=== PATIENT | female | born 2000 | race Caucasian/White ===

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

== ENCOUNTER 2019-04-11 14:24 | Emergency (ER) | payer BC ==
--- OUTSIDE RECORDS SUMMARY | 2019-04-11 15:21 | XMS REPORT | Continuity of Care Document ---
:2000 External Reference #:[id number] Author Name CHAU Torres Address [address] [place] [address] Care Team Providers Name Role Phone Donald Abreu MD - Family Medicine Care Team Information Planning Engineer Problems Active Problems Provider Date Attention deficit hyperactivity disorder, Donald Abreu M.D. Onset: 2017 combined type Manic bipolar I disorder Donald Abreu M.D. Onset: 04/04/2018 Social History Type Date Description Comments Sex Unknown Cigarette Use Several cigarettes per day Tobacco Use Start: Unknown Patient is a current smoker, smokes every day Smoking Status Reviewed: 03/11/19 Patient is a current smoker, smokes every day Allergies, Adverse Reactions, Alerts Description No Known Drug Allergies Medications Active Medications SIG Qnty Indications Ordering Date Provider Guaifenesin ER take 1 tablet every 30tabs J20.9 Donald Abreu, 2018 1200mg 12 hours. M.D. Tablets ER 12HR Breo Ellipta one inhalation 1units J20.9 Donald Abreu, 03/11/2019 daily M.D. 100-25mcg/Inh Aerosol Guanfacine HCL ER 1 by mouth every 30tabs Soito T. 3mg morning MD Guadalupe Tablets ER 24HR Lamotrigine take 1 tablet by Unknown 150mg mouth twice a day Tablets Rexulti 1 by mouth every 30tabs Osito T. 3mg Tablets day MD Guadalupe Prazosin HCL 1 by mouth every at 30caps Osito T. 2mg bedtime MD Guadalupe Capsules Folic Acid 1 by mouth every Unknown 1mg day Tablets Immunizations CPT Code Status Date Vaccine Lot # [id number] Given 02/25/2017 Influenza vac quadrivalent preservative free 6 months and up U-Menin Given 02/25/2016 Meningococcal,Unspecified 58729 Given 02/25/2016 Influenza vac quadrivalent preservative free 6 months and up 26678 Given 02/25/2016 Hep A Ped 2-Dose Immunization 16439 Given 02/09/2015 Influenza vac quadrivalent preservative free 6 months and up 56163 Given 02/09/2015 Gardasil vacine typs 6,11,16,18 3 dose schedule 57113 Given 02/09/2015 Hep A Ped 2-Dose Immunization 82791 Given 01/30/2014 Influenza vac quadrivalent preservative free 6 months and up 93377 Given 01/30/2014 Gardasil vacine typs 6,11,16,18 3 dose schedule U-FluNa Given 01/10/2013 Influenza,Nasal,Unspecified 23835 Given 01/10/2013 Gardasil vacine typs 6,11,16,18 3 dose schedule U-FluNa Given 12/26/2011 Influenza,Nasal,Unspecified U-Menin Given 12/26/2011 Meningococcal,Unspecified U-FluNa Given 12/27/2010 Influenza,Nasal,Unspecified 54438 Given 10/06/2010 Tdap Tetanus, W Pertussis U-FluNa Given 12/24/2009 Influenza,Nasal,Unspecified 92412 Given 04/18/2009 H1N1 Immunization Intramuscular/Intranasal W Counseling U-FluNa Given 03/11/2009 Influenza,Nasal,Unspecified U-FluNa Given 01/26/2008 Influenza,Nasal,Unspecified 85641 Given 09/07/2007 Varicella (Chicken Pox) Immunization U-FluNa Given 03/21/2007 Influenza,Nasal,Unspecified U-FluNa Given 09/18/2006 Influenza,Nasal,Unspecified U-FluNa Given 04/19/2006 Influenza,Nasal,Unspecified 46989 Given 02/26/2005 Influenza vac quadrivalent preservative free 6 months and up U-Polio Given 09/21/2004 Polio,Unspecified 04219 Given 09/21/2004 MMR Virus Immunization 51132 Given 09/21/2004 DTaP Immunization 11865 Given 05/09/2003 Influenza vac quadrivalent preservative free 6 months and up 71885 Given 03/01/2003 Influenza vac quadrivalent preservative free 6 months and up 81895 Given 01/31/2002 DTaP & Hib Immunization 02398 Given 08/03/2000 Varicella (Chicken Pox) Immunization 26678 Given 08/03/2000 MMR Virus Immunization 62766 Given 08/03/2000 Pneumococcal Conjugate Vaccine Under 5Yrs 35530 Given 06/13/2000 Pneumococcal Conjugate Vaccine Under 5Yrs 82817 Given 02/04/2000 DTaP Immunization 88808 Given 02/04/2000 Pneumococcal Immunization 13805 Given 02/04/2000 Hepatitis B Immunization, [place]-19 Years U-HIB Given 02/04/2000 Hib,Unspecified U-Polio Given 02/04/2000 Polio,Unspecified U-Polio Given 1999 Polio,Unspecified U-HIB Given 1999 Hib,Unspecified 54785 Given 1999 DTaP Immunization U-Polio Given 1999 Polio,Unspecified U-HIB Given 1999 Hib,Unspecified 37748 Given 1999 Hepatitis B Immunization, [place]-19 Years 61912 Given 1999 DTaP Immunization 43523 Given 1999 Hepatitis B Immunization, [place]-19 Years Vital Signs Date Vital Result Comment 03/11/2019 8:38am BP Systolic 108 mmHg BP Diastolic 70 mmHg Heart Rate 60 /min Body Temperature 97.3 F Height 70 inches 5'10" Weight 267.00 lb BMI (Body Mass Index) 38.3 kg/m2 Body Mass Index Percentile 98 % Weight Percentile >97th Height Percentile 97 % 12/29/2018 11:59am BP Systolic 124 mmHg BP Diastolic 60 mmHg Heart Rate 72 /min Body Temperature 97.7 F Respiratory Rate 16 /min Height 70 inches 5'10" Weight 264.38 lb BMI (Body Mass Index) 37.9 kg/m2 Body Mass Index Percentile 98 % Weight Percentile >97th Height Percentile 97 % Results Description No Information Available Procedures Description No Information Available Medical Devices Description No Information Available Encounters Type Date Location Provider Dx Diagnosis Office Visit 12/29/2018 Main Office Osito Guidry F31.10 Bipolar disord, 12:00p MD Guadalupe crnt episode manic w/o psych features, unsp Assessments Date Code Description Provider 03/11/2019 J20.9 Acute bronchitis, unspecified CHAU Torres 03/11/2019 J01.90 Acute sinusitis, unspecified CHAU Torres 12/29/2018 F31.10 Bipolar disorder, current episode manic Osito Butcher MD without psychotic fe Plan of Treatment Future Appointment(s):03/18/2019 8:45 am - CHAU Torres at [facility] Pndvof7103/11/2019 - CHAU TorresJ20.9 Acute bronchitis, unspecifiedNew Medication:Guaifenesin ER 1200 mg - take 1 tablet every 12 hours.Breo Ellipta 100-25 mcg/Inh - one inhalation dailyComments:Continue Clindamycin as directed. Start Mucinex twice a day to help loosen mucus. Start Breo once inthe mornings, continue to use the Albuterol inhaler every 4 hours as needed for wheezing. trouble breathing. Lots of fluids. Warm teas. Dayquil, Nyquil. Call if symptoms don't continue to improve or worsen in the next few days. Return next Monday or sooner if vmbclaF68.90 Acute sinusitis, unspecifiedComments:Neti Pot, Sinus rinses can help. Continue to use your nasal spray.AllComments:PCMHMedication Management Patient Understands medications he's taking? Yes Are there Barriers to Adherence? No Has the patient been asked about herbal supplements and therapies, and OTC meds? Yes Care Plan1. Patient has been queried about patient's goals/preferences and functional/lifestyle goals at relevant visits. Yes If relevant, describe: N/A2. Treatment goals as explained to the patient: above3. Are there barriers to meeting treatment goals ? No If Yes, please describe:4. Self-Management goals as described to the patient: Yes As always, we strongly encourage a healthy diet and making physical activity a part of your every day life. If you have questions about how or where to start, please contact the office.Follow up:1 week Functional Status Description No Information Available Mental Status Description No Information Available Referrals Description No Information Available
[2019-04-11 18:30] LABS: ABS Basophils 0.1 10^3/ul (0-0.2); ABS Eosinophils 0.5 10^3/ul (0-0.6); ABS Lymphocytes 4.2 10^3/ul (1.0-4.8); ABS Monocytes 0.8 10^3/ul (0-0.8); ABS Neutrophils 8.5 10^3/ul (1.5-7.7); Eosinophil % 3.4 %; Hematocrit 41 % (35-47); Hemoglobin 14.5 g/dL (12.0-16.0); Lymphocyte % 29.9 %; Mean Corpuscular HGB Conc 36 g/dL (31-36); Mean Corpuscular Hemoglobin 31 pg (27-31); Mean Corpuscular Volume 88 fL (80-97); Mean Platelet Volume 7.4 fL (7.4-10.4); Nucleated Red Blood Cells % 0.1; Platelet Count 353 10^3/uL (150-450); Red Blood Count 4.64 10^6 /uL (3.70-4.87); Red Cell Distribution Width 12 % (10-15); White Blood Count 14.1 10^3/uL (3.5-10.8)
[2019-04-11 18:49] LABS: Albumin 4.9 g/dL (3.2-5.2); Albumin/Globulin Ratio 1.6 (1-3); BUN/Creatinine Ratio 17.5 (8-20); C Reactive Protein 6.49 mg/L (<8.01); Calcium 10.1 mg/dL (8.6-10.3); EGFR African American 111.8 (>60); EGFR Non-African American 92.4 (>60); Globulin 3.1 g/dL (2-4); Potassium 3.8 mmol/L (3.5-5.0); Total Bilirubin 0.4 mg/dL (0.2-1.0)
[2019-04-11 18:54] LABS: HCG Pregnancy 10.59 mIU/mL
[2019-04-11] MEDS ORDERED: Ondansetron INJ* 2 MG/ML VIAL IV ONE (19:16)
[2019-04-11] MEDS ORDERED: NS 0.9% 1000 ML** 1,000 ML IV ONE (19:16)
[2019-04-11] MEDS ORDERED: Pantoprazole IV* 40 MG IV ONE (19:16)
--- NOTE | 2019-04-11 19:19 | ED ---
GI/ HPI - HPI Summary HPI Summary: 18-year-old female presents with abdominal pain after eating. She admits to nausea vomiting. She denies any diarrhea or constipation. No urinary symptoms. She is on control. She states that has occasionally vaginal discharge but denies any pain. She denies any chest pressures or shortness of breath. States she uses pain every time she eats something. She hasn't tried anything for her symptoms. Denies any fevers. Has no medical conditions. - History of Current Complaint Chief Complaint: EDAbdPain Time Seen by Provider: 04/11/19 19:05 Stated Complaint: ABD PAIN AFTER EATING PER PT Pain Intensity: 0 - Additional Pertinent History Primary Care Physician: [id number] - Allergy/Home Medications Allergies/Adverse Reactions: Allergies Allergy/AdvReac Type Severity Reaction Status Date / Time No Known Allergies Allergy Verified 07/14/18 13:26 PMH/Surg Hx/FS Hx/Imm Hx Endocrine/Hematology History: Denies: Hx Anticoagulant Therapy Cardiovascular History: Denies: Hx Rheumatic Fever, Hx Syncope, Hx Valvular Heart Disease Respiratory History: Denies: Hx Asthma, Hx Chronic Bronchitis, Hx Chronic Obstructive Pulmonary Disease (COPD), Hx Cystic Fibrosis, Hx Lung Cancer, Hx Pneumonia GI History: Denies: Hx Gastroesophageal Reflux Disease, Hx Gastrointestinal Bleed Musculoskeletal History: Denies: Hx Bursitis, Hx Congenital Bone Abnormalities Sensory History: Denies: Hx Contacts or Glasses, Hx Hearing Aid Opthamlomology History: Denies: Hx Contacts or Glasses Neurological History: Reports: Hx Headaches - occasional headaches- takes Motrin , Other Neuro Impairments/Disorders - hx of concussion in 9th-10th grade Denies: Hx Developmental Delay, Hx Migraine, Hx Nerve Disease, Hx Seizures, Hx Spinal Cord Injury, Hx Transient Ischemic Attacks (TIA) Psychiatric History: Reports: Hx Anxiety, Hx Attention Deficit Hyperactivity Disorder, Hx Eating Disorder - hx binging and restricting at times, Hx Depression, Hx Panic Disorder, Hx Inpatient Treatment, Hx Community Mental Health Tx, Hx Schizophrenia, Hx Bipolar Disorder, Hx Suicide Attempt, Hx of Violent Episodes Against Others, Hx Substance Abuse Denies: Hx Post Traumatic Stress Disorder - Surgical History Surgery Procedure, Year, and Place: TONSILECTOMY age 1 Infectious Disease History: No Infectious Disease History: Denies: Hx Tuberculosis, Traveled Outside the [place] in Last 30 Days - Family History Known Family History: Negative: Renal Disease, Respiratory Disease, Seizure Disorder - Social History Alcohol Use: None Alcohol Amount: pt sober now Substance Use Type: Reports: None Substance Use Comment - Amount & Last Used: patient states that she uses marijuana daily, using a blunt with tobacco Hx Tobacco Use: Yes - currently Juul Smoking Status (MU): Current Every Day Smoker Type: [place] Review of Systems Negative: Fever Negative: Chest Pain Negative: Shortness Of Breath Positive: Abdominal Pain, Vomiting. Negative: Diarrhea All Other Systems Reviewed And Are Negative: Yes Physical Exam Triage Information Reviewed: Yes Vital Signs On Initial Exam: Initial Vitals Temp Pulse Resp BP Pulse Ox 97.7 F 86 16 156/88 98 04/11/19 14:39 04/11/19 14:39 04/11/19 14:39 04/11/19 14:39 04/11/19 14:39 Vital Signs Reviewed: Yes Appearance: Positive: Well-Appearing Skin: Positive: Warm, Dry Head/Face: Positive: Normal Head/Face Inspection Eyes: Positive: Normal, Conjunctiva Clear ENT: Positive: Pharynx normal Respiratory/Lung Sounds: Positive: Clear to Auscultation, Breath Sounds Present Cardiovascular: Positive: Normal, RRR Abdomen Description: Positive: Soft, Other: - mild epigastric tenderness Bowel Sounds: Positive: Present Musculoskeletal: Positive: Normal Neurological: Positive: Normal Psychiatric: Positive: Normal Procedures - Sedation Patient Received Moderate/Deep Sedation with Procedure: No Diagnostics - Vital Signs Vital Signs Temp Pulse Resp BP Pulse Ox 04/11/19 16:15 97.8 F 87 18 129/81 99 04/11/19 14:39 97.7 F 86 16 156/88 98 - Laboratory Lab Results: Lab Results 04/11/19 04/11/19 Range/Units 18:10 18:10 WBC 14.1 H (3.5-10.8) 10^3/uL RBC 4.64 (3.70-4.87) 10^6 /uL Hgb 14.5 (12.0-16.0) g/dL Hct 41 (35-47) % MCV 88 (80-97) fL MCH 31 (27-31) pg MCHC 36 (31-36) g/dL RDW 12 (10-15) % Plt Count 353 (150-450) 10^3/uL MPV 7.4 (7.4-10.4) fL Neut % (Auto) 60.3 % Lymph % (Auto) 29.9 % [place] % (Auto) 5.7 % Eos % (Auto) 3.4 % Baso % (Auto) 0.7 % Absolute Neuts (auto) 8.5 H (1.5-7.7) 10^3/ul Absolute Lymphs (auto) 4.2 (1.0-4.8) 10^3/ul Absolute Monos (auto) 0.8 (0-0.8) 10^3/ul Absolute Eos (auto) 0.5 (0-0.6) 10^3/ul Absolute Basos (auto) 0.1 (0-0.2) 10^3/ul Absolute Nucleated RBC 0.0 10^3/ul Nucleated RBC % 0.1 Sodium 138 (135-145) mmol/L Potassium 3.8 (3.5-5.0) mmol/L Chloride 104 (101-111) mmol/L Carbon Dioxide 24 (22-32) mmol/L Anion Gap 10 (2-11) mmol/L BUN 14 (6-24) mg/dL Creatinine 0.80 (0.51-0.95) mg/dL Est GFR ( Amer) 111.8 (>60) Est GFR (Non-Af Amer) 92.4 (>60) BUN/Creatinine Ratio 17.5 (8-20) Glucose 86 (70-100) mg/dL Calcium 10.1 (8.6-10.3) mg/dL Total Bilirubin 0.40 (0.2-1.0) mg/dL AST 35 (13-39) U/L ALT 39 (7-52) U/L Alkaline Phosphatase 74 (34-104) U/L C-Reactive Protein 6.49 (<8.01) mg/L Total Protein 8.0 (6.4-8.9) g/dL Albumin 4.9 (3.2-5.2) g/dL Globulin 3.1 (2-4) g/dL Albumin/Globulin Ratio 1.6 (1-3) Amylase Pending Lipase 24 (11.0-82.0) U/L Beta HCG, Quant 10.59 mIU/mL Result Diagrams: 04/11/19 18:10 04/11/19 18:10 Lab Statement: Any lab studies that have been ordered have been reviewed, and results considered in the medical decision making process. - Ultrasound No standard instances Ultrasound Interpretation Completed By: Radiologist Summary of Ultrasound Findings: IMPRESSION: 1. No sonographic findings to correlate with patient's symptomatology. 2. Hepatic steatosis. Re-Evaluation - Re-Evaluation First Eval Re-Evaluation Time: 21:48 Change: Improved Comment: feels better, tolerated sandwich GIGU Course/Dx - Course Course Of Treatment: 18-year-old female presents with abdominal pain after eating. She admits to nausea vomiting. She denies any diarrhea or constipation. No urinary symptoms. She is not on control. She states that has occasionally vaginal discharge but denies any pain. She denies any chest pressures or shortness of breath. On exam mild tenderness epigastric. wbc 14. electrolytes normal. Gave protonix and Zofran and gallbladder ultrasound shows no acute findings. feels better and tolerate sandwich. will discharge with omeprazole and zofran. patient understand and agrees with plan. - Diagnoses Differential Diagnoses - Female: Gastritis, Gastroenteritis (Viral), Urinary Tract Infection Provider Diagnoses: Epigastric pain, Nausea Discharge ED - Sign-Out/Discharge Documenting (check all that apply): Patient Departure - Discharge Plan Condition: Good Disposition: HOME Prescriptions: Omeprazole 20 mg PO DAILY #13 capsule. Ondansetron ODT TAB* [Zofran 4 MG Odt TAB*] 4 mg PO Q6H PRN #16 tab.odt PRN Reason: Nausea Patient Education Materials: Epigastric Pain (ED) Referrals: Donald Abreu MD [Primary Care Provider] - Additional Instructions: Take omeprazole once a day Take Zofran every 6 hours as needed for nausea Avoid acidic foods Follow up with primary within 5 days follow up with GI Return to ED if develop any new or worsening symptoms - Billing Disposition and Condition Condition: GOOD Disposition: Home
[2019-04-11 19:30] LABS: Urine Appearance Cloudy; Urine Bilirubin Negative (Negative); Urine Blood 2+ (Negative); Urine Color Yellow; Urine Glucose Negative (Negative); Urine Ketones 1+ (Negative); Urine Nitrite Negative (Negative); Urine Protein Negative (Negative); Urine Specific Gravity 1.024 (1.010-1.030); Urine Urobilinogen Negative (Negative)
[2019-04-11 19:40] LABS: Urine Bacteria Absent (Absent); Urine Red Blood Cell 2+(6-10/hpf) (Absent); Urine Squamous Epithelial Cell Present (Absent); Urine White Blood Cell 1+(6-10/hpf) (Absent)
[2019-04-11] MEDS ORDERED: Ondansetron ODT TAB* 4 MG PO ONE (20:15)
[2019-04-11 22:19] VITALS: BP 126/101
== END 2019-04-11 22:18 | disposition home or self-care (01) ==
LOC: ED 14:24
DX: R10.13 Epigastric pain (principal); R11.0 Nausea; F41.9 Anxiety disorder, unspecified; F90.9 Attention-deficit hyperactivity disorder, unspecified type; Z90.89 Acquired absence of other organs; F17.290 Nicotine dependence, other tobacco product, uncomplicated
CPT/HCPCS: 36415; 76705; 80053; 81003; 81015; 82150; 83690; 84702; 85025; 86140; 87086; 96361; 96374; 96375; 99283; J2405

== ENCOUNTER 2019-04-28 03:29 | Emergency (ER) | payer BC ==
--- NOTE | 2019-04-28 03:52 | ED ---
GI/ HPI - HPI Summary HPI Summary: This pt is a 18 Y/O F presenting to [facility] accompanied by her father with a CC of a foreign body in her uterus. She states that she engaged in vaginal intercourse 04/27/19 while her tampon was in and it shifted sideways and is currently stuck. She states that she is not in pain but is unable to reach it. She denies any N/V, cramping, and pain. She states no alleviating factors. She has no pertinent PMHx. - History of Current Complaint Chief Complaint: EDUrogenitalProblems Time Seen by Provider: 04/28/19 03:52 Stated Complaint: TAMPON STUCK PER PT Hx Obtained From: Patient Onset/Duration: Started Hours Ago Timing: Constant Current Severity: None Pain Intensity: 0 Additional Location for Females: Uterus Associated Signs and Symptoms: Positive: Negative - pain, cramping, Other: - states tampon stuck in uterus. Negative: Nausea, Vomiting Aggravating Factor(s): [place] Alleviating Factor(s): Nothing - Additional Pertinent History Primary Care Physician: BRANT - Allergy/Home Medications Allergies/Adverse Reactions: Allergies Allergy/AdvReac Type Severity Reaction Status Date / Time No Known Allergies Allergy Verified 04/28/19 03:34 PMH/Surg Hx/FS Hx/Imm Hx Previously Healthy: Yes Endocrine/Hematology History: Denies: Hx Anticoagulant Therapy Cardiovascular History: Denies: Hx Rheumatic Fever, Hx Syncope, Hx Valvular Heart Disease Respiratory History: Denies: Hx Asthma, Hx Chronic Bronchitis, Hx Chronic Obstructive Pulmonary Disease (COPD), Hx Cystic Fibrosis, Hx Lung Cancer, Hx Pneumonia GI History: Denies: Hx Gastroesophageal Reflux Disease, Hx Gastrointestinal Bleed Musculoskeletal History: Denies: Hx Bursitis, Hx Congenital Bone Abnormalities Sensory History: Denies: Hx Contacts or Glasses, Hx Hearing Aid Opthamlomology History: Denies: Hx Contacts or Glasses Neurological History: Reports: Hx Headaches - occasional headaches- takes Motrin , Other Neuro Impairments/Disorders - hx of concussion in 9th-10th grade Denies: Hx Developmental Delay, Hx Migraine, Hx Nerve Disease, Hx Seizures, Hx Spinal Cord Injury, Hx Transient Ischemic Attacks (TIA) Psychiatric History: Reports: Hx Anxiety, Hx Attention Deficit Hyperactivity Disorder, Hx Eating Disorder - hx binging and restricting at times, Hx Depression, Hx Panic Disorder, Hx Inpatient Treatment, Hx Community Mental Health Tx, Hx Schizophrenia, Hx Bipolar Disorder, Hx Suicide Attempt, Hx of Violent Episodes Against Others, Hx Substance Abuse Denies: Hx Post Traumatic Stress Disorder - Cancer History Hx Chemotherapy: No Hx Radiation Therapy: No - Surgical History Surgical History: Yes Surgery Procedure, Year, and Place: TONSILECTOMY age 1 - Immunization History Immunizations Up to Date: Yes Infectious Disease History: No Infectious Disease History: Denies: Hx Tuberculosis, Traveled Outside the [place] in Last 30 Days - Family History Known Family History: Negative: Renal Disease, Respiratory Disease, Seizure Disorder - Social History Occupation: Employed Part-time Lives: With Family Alcohol Use: Rare Hx Substance Use: Yes Substance Use Type: Reports: Marijuana Substance Use Comment - Amount & Last Used: patient states that she uses marijuana daily, using a blunt with tobacco Hx Tobacco Use: Yes - currently Juul Smoking Status (MU): Light Every Day Tobacco Smoker Type: Cigarettes, eCigarettes Amount Used/How Often: 1/2 PPD Review of Systems Negative: Vomiting, Nausea Genitourinary: Negative - vaginal cramping , Other - states tampon stuck in uterus Negative: pain All Other Systems Reviewed And Are Negative: Yes Physical Exam - Summary Physical Exam Summary: Appearance: Well-appearing, Well-nourished, lying in bed comfortably Skin: Warm, dry, no obvious rash Eyes: sclera anicteric, no conjunctival pallor ENT: mucous membranes moist, pharynx appears normal Neck: Supple, nontender Respiratory: Clear to auscultation, no signs of respiratory distress Cardiovascular: Normal S1, S2. No murmurs. Normal distal pulses in tibial and radial bilaterally. Abdomen: Soft, nontender, normal active bowel sounds present Musculoskeletal: Normal, Strength/ROM Intact Neurological: A&Ox3, awake and alert, mentation is normal, speech is fluent and appropriate Psychiatric: affect is normal, does not appear anxious or depressed Speculum exam shows her tampon wedged between the cervix and the posterior vaginal wall. This was removed with fitz forceps. Triage Information Reviewed: Yes Vital Signs On Initial Exam: Initial Vitals Temp Pulse Resp BP Pulse Ox 96.5 F 97 15 116/69 99 04/28/19 03:30 04/28/19 03:30 04/28/19 03:30 04/28/19 03:30 04/28/19 03:30 Vital Signs Reviewed: Yes Procedures - Procedure Summary Procedure Summary: Vaginal area was examined and foreign body was found and removed without complications. - Sedation Patient Received Moderate/Deep Sedation with Procedure: No Diagnostics - Vital Signs Vital Signs Temp Pulse Resp BP Pulse Ox 04/28/19 03:30 96.5 F 97 15 116/69 99 - Laboratory Lab Statement: Any lab studies that have been ordered have been reviewed, and results considered in the medical decision making process. GIGU Course/Dx - Course Course Of Treatment: This pt is a 18 Y/O F presenting to [facility] accompanied by her father with a CC of a foreign body in her genitalia. She states that she engaged in vaginal intercourse 04/27/19 while her tampon was in and it shifted sideways and is currently stuck. She states that she is not in pain but is unable to reach it. She denies any N/V, cramping, and pain. Her Speculum exam shows her tampon wedged between the cervix and the posterior vaginal wall. This was removed with fitz forceps. The foreign body was removed succesfully without complications. Pt will be discharged home with a Dx of a vaginal foreign body. - Diagnoses Provider Diagnoses: Vaginal foreign body Discharge ED - Sign-Out/Discharge Documenting (check all that apply): Patient Departure - discharge - Discharge Plan Condition: Good Disposition: HOME Patient Education Materials: Vaginal Foreign Body (ED) Referrals: Donald Abreu MD [Primary Care Provider] - If Needed - Billing Disposition and Condition Condition: GOOD Disposition: Home - Attestation Statements Document Initiated by Sushma: Yes Documenting Scribe: Jonathan Banks Provider For Whom Sushma is Documenting (Include Credential): John Dan MD Scribe Attestation: Jonathan Cox, kyibed for John Dan MD on 04/28/19 at 0557. Scribe Documentation Reviewed: Yes Provider Attestation: The documentation as recorded by the Jonathan mercer accurately reflects the service I personally performed and the decisions made by John kwon MD Status of Scribe Document: Viewed
[2019-04-28 04:00] VITALS: BP 138/83
== END 2019-04-28 04:00 | disposition home or self-care (01) ==
LOC: ED 03:29
DX: T19.2XXA Foreign body in vulva and vagina, initial encounter (principal); X58.XXXA Exposure to other specified factors, initial encounter; Y92.9 Unspecified place or not applicable; F41.9 Anxiety disorder, unspecified; F90.9 Attention-deficit hyperactivity disorder, unspecified type; F17.290 Nicotine dependence, other tobacco product, uncomplicated
CPT/HCPCS: 99282

== ENCOUNTER 2023-10-09 16:01 | Inpatient (IN) ==
[2023-10-09 17:48] LABS: ABS Eosinophils 0.1 10^3/uL (0.0-0.5); ABS Lymphocytes 2.2 10^3/uL (1.0-4.8); ABS Neutrophils 6.2 10^3/uL (1.5-7.6); ABS Nucleated RBC 0.01 10^3/ul; Eosinophil % 0.8 %; Hemoglobin 14.6 g/dL (11.5-14.3); Lymphocyte % 23.2 %; Mean Corpuscular Hemoglobin 33.6 pg (27-33); Mean Corpuscular Hgb Conc 36.6 g/dL (31-36); Mean Corpuscular Volume 91.9 fL (80-97); Mean Platelet Volume 8.4 fL (7.5-11.2); Nucleated Red Blood Cells % 0.1 %/100WBC (0.0-0.8); Platelet Count 229 10^3/uL (150-450); Red Blood Count 4.35 10^6/uL (3.63-4.92); Red Cell Distribution Width 13.6 % (12-17); White Blood Count 9.4 10^3/uL (3.8-11.8)
[2023-10-09] MEDS: Lactated Ringers 1000 ml BAG 1,000 ML IV ONE ×2 (17:56→18:48)
[2023-10-09 18:10] LABS: High Sens Troponin Baseline 7 pg/mL (<15)
[2023-10-09] MEDS: Al Hydrox/Mg Hydrox/Simet LIQ 30 ML UDC PO ONE (18:23)
[2023-10-09 18:24] LABS: Albumin 4.5 g/dL (3.2-5.2); Albumin/Globulin Ratio 1.7 (1-3); Alkaline Phosphatase 72 U/L (35-149); Anion Gap 22 mmol/L (2-16); C Reactive Protein 10.13 mg/L (<8.01); CO2 Carbon Dioxide 8 mmol/L (22-32); Calcium 8.9 mg/dL (8.6-10.3); Chloride 97 mmol/L (101-111); Creatinine, Serum 0.88 mg/dL (0.51-0.95); Globulin 2.6 g/dL (2-4); Glucose 467 mg/dL (70-100); HCG Pregnancy < 0.60 mIU/mL; Sodium 127 mmol/L (135-145); Total Bilirubin 0.4 mg/dL (0.2-1.0); Total Protein 7.1 g/dL (6.4-8.9); eGFR CKD-EPI 94.1 (>60)
[2023-10-09 18:26] LABS: Urine Appearance Clear; Urine Bacteria Absent /HPF (Absent); Urine Bilirubin Negative (Negative); Urine Blood Trace (Negative); Urine Color Light-Yellow; Urine Glucose 4+ (>=1000 mg/dL) (Negative); Urine Ketones 4+ (Negative); Urine Nitrite Negative (Negative); Urine Protein 1+ (>=30 mg/dL) (Negative); Urine Red Blood Cell Trace(0-2/hpf) /HPF (0-Trace); Urine Squamous Epithelial Cell Present /HPF (Absent); Urine Urobilinogen Negative (Negative); Urine White Blood Cell 1+(6-10/hpf) /HPF (0-Trace); Urine pH 5.5 (5.0-8.0)
[2023-10-09 18:53] LABS: Blood Urea Nitrogen 11 mg/dL (6-24)
[2023-10-09 19:01] LABS: High Sensitivity Troponin 1 Hr 8 pg/mL (<15)
[2023-10-09] MEDS ORDERED: Dextrose 50% Syringe 50 ml 25 GM/50 ML SYRINGE IV PUSH PRN (19:26)
[2023-10-09] MEDS ORDERED: Albuterol HFA INHALER 8 gm MDI INH PRN (19:36)
[2023-10-09] MEDS: Nicotine GUM 4MG FRUIT FLAVOR PO ONE (20:03)
[2023-10-09 21:30] LABS: Anion Gap 22 mmol/L (2-16); Blood Urea Nitrogen 8 mg/dL (6-24); CO2 Carbon Dioxide 8 mmol/L (22-32); Calcium 8.4 mg/dL (8.6-10.3); Chloride 100 mmol/L (101-111); Creatinine, Serum 0.89 mg/dL (0.51-0.95); Glucose 346 mg/dL (70-100); Sodium 130 mmol/L (135-145); eGFR CKD-EPI 92.8 (>60)
[2023-10-09] MEDS: Insulin Infusion 100unit/100mL 100 UNIT/100 ML BAG IV SCH (21:51)
[2023-10-09] MEDS: Lactated Ringers 1000 ml BAG 1,000 ML IV SCH (21:54)
[2023-10-09] MEDS: Pantoprazole VIAL 40 MG VIAL IV SCH (21:56)
[2023-10-09] MEDS: Enoxaparin 40 MG/0.4 ML SYR SUBCUT SCH (21:56)
[2023-10-09] MEDS: D5LR 20 MEQ KCL 1000 ml BAG 1,000 ML IV SCH (23:13)
[2023-10-09 23:36] LABS: Potassium, Whole Blood 2.5 mmol/L (3.4-4.5)
[2023-10-10] MEDS: D5LR 20 MEQ KCL 1000 ml BAG 1,000 ML IV SCH (00:15)
[2023-10-10] MEDS: KCL 20 MEQ/100 ML IVPREMIX 20 MEQ/100 ML BAG IV SCH (00:18)
[2023-10-10 00:42] LABS: Anion Gap 19 mmol/L (2-16); Blood Urea Nitrogen 7 mg/dL (6-24); CO2 Carbon Dioxide 8 mmol/L (22-32); Chloride 105 mmol/L (101-111); Creatinine, Serum 0.78 mg/dL (0.51-0.95); Glucose 179 mg/dL (70-100); Sodium 132 mmol/L (135-145); eGFR CKD-EPI 108.7 (>60)
[2023-10-10] MEDS: Oxymetazoline 0.05% NASAL SPR 15 ML BTL BOTH NARES PRN (03:05)
[2023-10-10 03:42] LABS: ABS Basophils 0.1 10^3/uL (0.0-0.1); ABS Eosinophils 0.1 10^3/uL (0.0-0.5); ABS Lymphocytes 3.3 10^3/uL (1.0-4.8); ABS Monocytes 0.9 10^3/uL (0.0-0.9); ABS Neutrophils 3.4 10^3/uL (1.5-7.6); ABS Nucleated RBC 0.01 10^3/ul; Eosinophil % 1.6 %; Hemoglobin 13.6 g/dL (11.5-14.3); Lymphocyte % 42.3 %; Mean Corpuscular Hgb Conc 36.6 g/dL (31-36); Mean Corpuscular Volume 90.1 fL (80-97); Mean Platelet Volume 8.1 fL (7.5-11.2); Nucleated Red Blood Cells % 0.2 %/100WBC (0.0-0.8); Platelet Count 232 10^3/uL (150-450); Red Blood Count 4.11 10^6/uL (3.63-4.92); Red Cell Distribution Width 13.9 % (12-17); White Blood Count 7.8 10^3/uL (3.8-11.8)
[2023-10-10 05:06] LABS: Anion Gap 15 mmol/L (2-16); Blood Urea Nitrogen 6 mg/dL (6-24); CO2 Carbon Dioxide 11 mmol/L (22-32); Calcium 8.4 mg/dL (8.6-10.3); Chloride 109 mmol/L (101-111); Creatinine, Serum 0.74 mg/dL (0.51-0.95); Glucose 120 mg/dL (70-100); Sodium 135 mmol/L (135-145); eGFR CKD-EPI 115.8 (>60)
[2023-10-10 06:19] LABS: Anion Gap 12 mmol/L (2-16); Blood Urea Nitrogen 6 mg/dL (6-24); CO2 Carbon Dioxide 14 mmol/L (22-32); Calcium 8.3 mg/dL (8.6-10.3); Chloride 109 mmol/L (101-111); Creatinine, Serum 0.75 mg/dL (0.51-0.95); Glucose 173 mg/dL (70-100); Sodium 135 mmol/L (135-145); eGFR CKD-EPI 113.9 (>60)
[2023-10-10] MEDS: Insulin GLARGINE 100 un/ml 10 ml VIAL SUBCUT ONE ×2 (08:06→21:18)
[2023-10-10] MEDS: Potassium Chlor 20 meq TAB.ER PO ONE (08:06)
[2023-10-10 08:19] LABS: Anion Gap 13 mmol/L (2-16); Blood Urea Nitrogen 6 mg/dL (6-24); CO2 Carbon Dioxide 13 mmol/L (22-32); Chloride 108 mmol/L (101-111); Creatinine, Serum 0.66 mg/dL (0.51-0.95); Glucose 226 mg/dL (70-100); Sodium 134 mmol/L (135-145); eGFR CKD-EPI 125.5 (>60)
[2023-10-10 08:29] LABS: TSH Ultra Thyroid Stim Horm 4.72 mcIU/mL (0.34-5.60)
[2023-10-10] MEDS: Lactated Ringers 1000 ml BAG 1,000 ML IV SCH (10:04)
[2023-10-10 12:45] LABS: Anion Gap 15 mmol/L (2-16); Blood Urea Nitrogen 5 mg/dL (6-24); CO2 Carbon Dioxide 13 mmol/L (22-32); Calcium 7.8 mg/dL (8.6-10.3); Chloride 104 mmol/L (101-111); Creatinine, Serum 0.54 mg/dL (0.51-0.95); Glucose 321 mg/dL (70-100); Magnesium 1.5 mg/dL (1.9-2.7); Sodium 132 mmol/L (135-145); eGFR CKD-EPI 131.8 (>60)
[2023-10-10 12:52] LABS: Potassium, Whole Blood 3.8 mmol/L (3.4-4.5)
[2023-10-10] MEDS: Magnesium Sulf 4 GM/100 ML IV 4,000 MG/100 ML BAG IVPB ONE (14:30)
[2023-10-10 14:36] LABS: Cholesterol 320 mg/dL; HDL Cholesterol 18.8 mg/dL; Triglycerides 2355 mg/dL
[2023-10-10 15:19] LABS: LDL Cholesterol Direct 30 mg/dL
[2023-10-11 01:03] LABS: Anion Gap 15 mmol/L (2-16); Blood Urea Nitrogen 7 mg/dL (6-24); CO2 Carbon Dioxide 16 mmol/L (22-32); Calcium 7.7 mg/dL (8.6-10.3); Chloride 102 mmol/L (101-111); Creatinine, Serum 0.72 mg/dL (0.51-0.95); Glucose 389 mg/dL (70-100); Sodium 133 mmol/L (135-145); eGFR CKD-EPI 119.7 (>60)
[2023-10-11 07:26] LABS: Blood Urea Nitrogen 5 mg/dL (6-24); CO2 Carbon Dioxide 17 mmol/L (22-32); Chloride 102 mmol/L (101-111); Creatinine, Serum 0.65 mg/dL (0.51-0.95); Glucose 272 mg/dL (70-100); Sodium 134 mmol/L (135-145); Triglycerides 1973 mg/dL
[2023-10-11] MEDS: Insulin GLARGINE 100 un/ml 10 ml VIAL SUBCUT ONE ×2 (07:45→08:30)
[2023-10-11 07:47] LABS: Anion Gap 15 mmol/L (2-16)
[2023-10-11 07:53] LABS: ABS Eosinophils 0.2 10^3/uL (0.0-0.5); ABS Lymphocytes 2.2 10^3/uL (1.0-4.8); ABS Monocytes 0.6 10^3/uL (0.0-0.9); ABS Neutrophils 2.4 10^3/uL (1.5-7.6); ABS Nucleated RBC 0.03 10^3/ul; Eosinophil % 3.8 %; Hematocrit 35.3 % (35-45); Lymphocyte % 41.2 %; Mean Corpuscular Hemoglobin 33.4 pg (27-33); Mean Corpuscular Hgb Conc 36.8 g/dL (31-36); Mean Corpuscular Volume 90.8 fL (80-97); Mean Platelet Volume 8.5 fL (7.5-11.2); Nucleated Red Blood Cells % 0.6 %/100WBC (0.0-0.8); Platelet Count 201 10^3/uL (150-450); Red Blood Count 3.89 10^6/uL (3.63-4.92); Red Cell Distribution Width 13.8 % (12-17); White Blood Count 5.4 10^3/uL (3.8-11.8)
[2023-10-11] MEDS: Atomoxetine 60 MG CAP (NF) PO SCH (12:18)
[2023-10-11 13:25] VITALS: BP 111/64
[2023-10-11 13:53] LABS: Potassium, Whole Blood 3.2 mmol/L (3.4-4.5)
== END 2023-10-11 16:48 | disposition home or self-care (01) | DRG 420 ==
LOC: ED 16:01 → EDHOLD 19:32 → SUATTDRO 19:32 → ICU 20:58 → MED 10-10 13:21
PROVIDERS: ADMIT Internal Medicine; ATTEND Student in an Organized Health Care Education/Training Program